=== PATIENT | female | born 1970 | race Caucasian/White ===

== ENCOUNTER → 2020-01-28 | Outpatient (CLI) | payer OTHER | LOC: SJCVCIMAG 07:50 | PROVIDERS: ATTEND Internal Medicine Cardiovascular Disease | DX: R55 Syncope and collapse (principal); R42 Dizziness and giddiness ==

== ENCOUNTER → 2020-02-05 | Outpatient (CLI) | payer OTHER ==
[2020-02-05 12:47] VITALS: BP 123/89
--- NOTE | 2020-02-10 17:12 | LINQ ---
[facility] [place] [address] LINQ PROCEDURE REPORT Name: ABDOULAYE MELENDEZ Room #: REG JOE Parrish#: [id number] Admission: 02/05/20 Attend Phys: Vicente Jackson Discharge: Date of : 70 Report #: [id number] THIS REPORT FOR: cc: Christina Pineda MD, Constance M. MD Lammoglia, Francisco J. MD ~ THIS REPORT FOR: //name// APPROVED REPORT Study performed: 02/05/2020 14:30:11 Patient Status: Out-Patient Room #: Event Personnel: Vicente Jackson MD Exam: Reveal LINQ Insertion Indications: Syncope Implanted Devices: Medtronic: Reveal LINQ; Model #: LNQ11; SN: [id number]; Use by: 2020-05-23 Procedure The patient underwent informed consent. We discussed the details of the procedure including the risks, which include, but not limited to bleeding, infection, vascular damage, cardiac perforation, and pneumothorax. Abdominal exam was obtained the patient was brought to the cardiac aspiration laboratory prepped and hold. The left chest was prepped and draped in usual sterile manner. Using 1% lidocaine the wheal was raised and incision and tract was anesthetized. Using 11 blade and a small incision was made. Utilizing both blunt and sharp dissection a pocket was generated. With the enclosed deployment tool this was utilized and the device was positioned in place and secured. Subcutaneous tissue was closed with 2 simple interrupted sutures and the skin was closed with a 3-0 Vicryl absorbable running subcuticular. Steri-Strips 4 x 4 OpSite were utilized. Patient tolerated procedure well and there were no complications Conclusion 1. Successful implantation of a loop recorder [place] [address] [place] [address] [employer] PROCEDURE REPORT Name: ABDOULAYE MELENDEZ Room #: REG [facility]#: [id number] Admission: 02/05/20 Attend Phys: Vicente Rodríguez Discharge: Date of : 70 Report #: [id number] Recommendations 1. Routine post insertion protocol <ELECTRONICALLY SIGNED> By: Vicente Jackson MD 02/10/201711 11 11 Vicente Jackson MD /INF
== END | disposition home or self-care (01) ==
LOC: CATH 10:26
PROVIDERS: ATTEND Internal Medicine
DX: R55 Syncope and collapse (principal)

== ENCOUNTER → 2020-03-23 | Outpatient (CLI) | payer OTHER | LOC: LAB 11:28 | PROVIDERS: ATTEND Internal Medicine Cardiovascular Disease | DX: Z01.812 Encounter for preprocedural laboratory examination (principal); Z20.828 Contact with and (suspected) exposure to other viral communicable diseases ==

== ENCOUNTER → 2020-03-28 | Outpatient (CLI) | payer OTHER ==
[~2020-03-28] MED LIST: ALPRAZOLAM 0.0.25 M1 PO; AMITRIPTYLINE H10 M1 PO; D3-200050 MCG PO; L-METHYL-MC TA1 EACH PO; LOESTRIN FE 1-1 EACH PO; LUNESTA3 MG PO; NP THYROID60 MG PO; TRAZODONE HCL50 MG PO
[2020-03-28 07:13] VITALS: BP 104/62
[2020-03-28 07:46] LABS: ABSOLUTE NEUTROPHILS 3.1 thou/uL (1.4-8.2); EOSINOPHILS 2.1 % (0.0-3.0); HEMATOCRIT 41.4 % (37.0-47.0); HEMOGLOBIN 13.4 gm/dL (12.0-15.0); LYMPHOCYTES 28.6 % (24.0-44.0); MCHC 32.4 g/dL (28.0-37.0); MCV 89.4 fL (80.0-100.0); MONOCYTES 11.6 % (1.0-8.0); PLATELET COUNT 207 thou/uL (150-400); POLYS 56.7 % (36.0-66.0); RBC 4.63 mil/uL (4.20-5.00); RDW 13.2 % (10.5-14.5); WBC 5.5 thou/uL (4.0-11.0)
[2020-03-28 08:12] LABS: CALCIUM 8.5 mg/dL (8.5-10.1); CREATININE 1.1 mg/dL (0.6-1.0)
[2020-03-28 08:19] LABS: APTT 29.2 Seconds (24.5-32.8); PROTIME 10.4 Seconds (9.3-11.4)
[2020-03-28 08:20] LABS: ALBUMIN 3.6 g/dL (3.4-5.0); TOTAL BILIRUBIN 0.2 mg/dL (0.2-1.0); TOTAL PROTEIN 7.3 g/dL (6.4-8.2)
--- NOTE | 2020-04-04 11:51 | P ---
[facility] [place] [address] PROCEDURE REPORT Name: ABDOULAYE MELENDEZ Room #: REG JOE FlanneryLizetteAdelaLizette#: [id number] Admission: 03/28/20 Attend Phys: Ruben Mcpherson MD Discharge: Date of : 70 Report #: [id number] THIS REPORT FOR: cc: Christina Pineda MD,Christina Mcpherson,Ruben Krishnan MD ~ CC: Christina Mcpherson EP STUDY PREOPERATIVE DIAGNOSIS: Supraventricular tachycardia. POSTOPERATIVE DIAGNOSIS: Supraventricular tachycardia. PROCEDURES PERFORMED: 1. Comprehensive EP study with induction, CPT code 06282. 2. EP with left atrial pacing and recording, 54985. 3. Program stimulation and pacing after IV drug infusion, CPT code 57787. HISTORY: The patient is a 49-year-old female with history of recurrent syncope, status post implantable loop recorder who had evidence of SVT on a patient monitor. She is here for EP study and ablation. DESCRIPTION OF PROCEDURE: The patient was brought to EP laboratory in a fasting and sedated state, prepped and draped in a sterile fashion. I obtained access to the femoral veins placing an 8, 2, 6 and a 7-Ivorian short sheath using the modified Seldinger technique. Next, under fluoroscopy, I placed 3 quadripolar catheters at the HRA, His and RV positions and decapolar catheter into the coronary sinus. Next a comprehensive EP study was performed. At baseline, the patient was in sinus rhythm with sinus cycle length of 840 milliseconds, WA interval 135 milliseconds, QRS duration 95 milliseconds, QT interval 375 milliseconds, AH interval 110 milliseconds, HV interval 36 milliseconds. Atrial burst pacing was performed and AV block was noted at 400 milliseconds. Ventricular pacing was performed and VA block was noted at 500 milliseconds. Conduction was both midline and decremental. Single atrial and ventricular extrastimuli were delivered and no SVT was induced. Next, isoproterenol infusion was started at 2 mcg per minute and AV block was noted 270 milliseconds. Atrial ERP was noted at 210 milliseconds at a [address] cycle length. VA block was noted at 270 milliseconds. Ventricular ERP was noted at 190 milliseconds at [address] cycle length with VA conduction that was both midline and decremental. I tested at this dose for 20-30 minutes and no SVT could be induced. Isoproterenol was increased to 4 mcg per minute. Atrial ERP was noted at 200 milliseconds at [address] cycle length. AV block was noted at 230 milliseconds and VA block was noted at 250 milliseconds. Again, we performed very aggressive EP study and could not induce any SVT. There was no evidence of a slow pathway with no jumps [facility] [address] [place] [address] PROCEDURE REPORT Name: ALABDOULAYE Room #: REG JOE Senior#: [id number] Admission: 03/28/20 Attend Phys: Ruben Mcpherson MD Discharge: Date of : 70 Report #: [id number] and no echoes, there was no evidence of accessory pathway. Even with aggressive atrial pacing, I could not induce AFib or atrial flutter. As such, we continued testing as the isoproterenol wore off. Post-ablation, the patient remained in sinus rhythm with normal intervals. As such, all catheters and sheaths were pulled. Hemostasis was obtained and the patient awoke neurologically and hemodynamically intact with no complications and no significant bleeding. CONCLUSIONS: 1. Normal comprehensive EP study with no inducible arrhythmias. 2. Normal SA sylvia function. 3. Normal AV sylvia function. 4. Normal His-Purkinje function. <ELECTRONICALLY SIGNED> By: Ruben Mcpherson MD 04/04/20 1151 1233 20 Ruben Mcpherson MD /nt
== END | disposition home or self-care (01) ==
LOC: CATH 06:34
PROVIDERS: ATTEND Internal Medicine Cardiovascular Disease
DX: I47.1 Supraventricular tachycardia (principal); R55 Syncope and collapse; E03.9 Hypothyroidism, unspecified; G47.00 Insomnia, unspecified; F32.9 Major depressive disorder, single episode, unspecified; Z98.890 Other specified postprocedural states; Z79.899 Other long term (current) drug therapy; Z88.2 Allergy status to sulfonamides; Z88.8 Allergy status to other drugs, medicaments and biological substances
CPT/HCPCS: 62110; 62900; 70005

== ENCOUNTER → 2020-05-09 | Outpatient (CLI) | payer OTHER | LOC: LAB 10:46 | PROVIDERS: ATTEND Internal Medicine | DX: Z01.812 Encounter for preprocedural laboratory examination (principal); Z20.828 Contact with and (suspected) exposure to other viral communicable diseases ==

== ENCOUNTER 2020-05-13 09:27 | Observation (INO) | payer OTHER ==
[~2020-05-13] VITALS: Ht 167.6 cm; Wt 74.9 kg
[2020-05-13 10:10] VITALS: BP 112/68
[2020-05-13] MEDS ORDERED: TRAMADOL 50 MG50 MG PO (10:32)
[2020-05-13] MEDS ORDERED: TRANSDERM-SCOP1 EACH TRANSDERM (10:35)
[2020-05-13] MEDS ORDERED: ONDANSETRON ODT8 MG PO (10:35)
[2020-05-13] MEDS ORDERED: ONDANSETRON ODT4 MG PO (10:36)
[2020-05-13] MEDS ORDERED: NAPROSYN500 M1 PO (10:37)
[2020-05-13] MEDS ORDERED: MECLIZINE HCL25 M1 PO (10:38)
[2020-05-13] MEDS ORDERED: NORCO 10-325 T1 EACH PO (10:39)
[2020-05-13 10:45] LABS: HEMATOCRIT 40.8 % (37.0-47.0); HEMOGLOBIN 13.8 gm/dL (12.0-15.0); MCH 29.9 pg (26.0-34.0); MCHC 33.8 g/dL (28.0-37.0); MCV 88.6 fL (80.0-100.0); RBC 4.61 mil/uL (4.20-5.00); RDW 12.9 % (10.5-14.5); WBC 5.6 thou/uL (4.0-11.0)
[2020-05-13 10:52] LABS: CALCIUM 9.3 mg/dL (8.5-10.1); CREATININE 1.1 mg/dL (0.6-1.0); POTASSIUM 4.1 mmol/L (3.5-5.1)
[2020-05-13 11:05] VITALS: BP 146/96
[2020-05-13 15:00] VITALS: BP 110/78
--- NOTE | 2020-05-13 16:30 | NUR ---
NEW ADMIT POST PACEMAKER PLACED BY DR OROPEZA, LEFT SHOULDER IMMOBILIZER IN PLACE WITH DRESSING OVER INCISION SIGHT. PAIN MANAGED WITH PRN MEDICATION. BEDSIDE AT THIS TIME. PT ALERTX4 DROWSY. HOB AT 45DEGREE. ORRIENTED TO ROOM. FLUIDS GIVEN IN POST OP. AMDISSION ASSESEMENT, EDUCATION, HISTORY COMPLETED. FALL PRECATION IN PLACE. CALL LIGHT IN REACH.
[2020-05-13 19:00] VITALS: BP 104/63
[2020-05-13 23:50] VITALS: BP 125/60
--- NOTE | 2020-05-14 04:43 | NUR ---
ASSESSMENTS CHARTED, MEDS CHARTED GIVEN. PATIENT RESTING WITH IMMOBILIZER IN PLACE DURING SHIFT. PATIENT RECEIVED NEW PACEMAKER DURING DAY, SURGICAL SITE IS DRY AND INTACT. PATIENT NPO SINCE MIDNIGHT IN CASE XRAY SHOWS LEADS ARE NOT IN THE CORRECT SPOT. C/O PAIN AT SITE AT START OF SHIFT, HAD JUST RECEIVED PAIN MEDS, PATIENT ASLEEP. PATIENT'S HOME MEDS WERE RESTARTED. BASED ON XRAY, PATIENT MAY BE DISCHARGED IN THE MORNING. FALL PRECAUTIONS IN PLACE DURING SHIFT.
[2020-05-14 04:50] VITALS: BP 107/59
[2020-05-14 07:15] VITALS: BP 118/78
[2020-05-14 11:15] VITALS: BP 108/69
[2020-05-14 11:33] VITALS: BP 118/78
--- NOTE | 2020-05-14 13:21 | NUR ---
PT HAD A HEAD ACHE WHICH WAS MOSTLY RELEIVED WITH TYLENOL. DR WORKMAN SAW HER XRAY AND WROTE DC ORDERS. ALL ORDERS REVIEWED WITH PT, SHE VERBALIZED UNDERSTANDING OF UPCOMING APPOINTMENTS AND MEDICATIONS, IV AND TELE MONITOR BOTH REMOVED, PT'S , BRITTANIE, CAME IN TO HELP PT DRESS, PT LEFT WITH HIM VIA BEING PUSHED OUT BY WHEELCHAIR, AND TOOK ALL BELONGINGS.
--- NOTE | 2020-05-15 20:45 | CATHLAB ---
[facility] [address] [place] [address] INVASIVE PROCEDURE REPORT Name: ABDOULAYE MELENDEZ Room #: 201-P [facility] Elham Senior#: [id number] Admission: 05/13/20 Attend Phys: Vicente Jackson Discharge: 05/14/20 Date of : 70 Report #: [id number] THIS REPORT FOR: cc: Christina Pineda MD, Constance M. MD Lammoglia, Francisco J. MD ~ APPROVED REPORT Study performed: 05/13/2020 10:27:27 Patient Status: Out-Patient Room #: Event Personnel: Dr. Sam Jackson Exam: Insertion of Dual Chamber Permanent Pacemaker Indications: Sick Sinus Syndrome/Tachy You Syndrome The patient is a 49 year-old female with a history of Symptomatic tachybradycardia syndrome. Implanted Devices: MEDTR[employer]IC RV-MODEL:5076-58CM, SN:[id number], EXPIRATION: 2021-12-21 RA- MODEL:5076-45CM, SN:[id number], EXPIRATION: 2021-09-15 JANELLE TOLEDO- [id number], SN: [id number], EXPIRATION: 2021-08-21 Procedure The patient underwent informed consent. We discussed the details of the procedure including the risks, which include, but not limited to bleeding, infection, vascular damage, cardiac perforation, and pneumothorax. She understood these risks and was willing to proceed. As such, she was brought to the EP/Cardiac Catheterization laboratory in a fasting and sedated state and prepped and draped in a sterile fashion, received IV antibiotics prior to initiation of the procedure and a venogram was performed showing patency of the left axillary vein. The patient underwent general anesthesia, with no anesthesia related complications. The patient was brought to the EP/Cardiac Catheterization laboratory and the left chest and shoulder were prepped and draped in a sterile manner. During this case, Fluoroscopy and no contrast were used for imaging. The left subclavian region was infiltrated with 2% Lidocaine subcutaneous anesthesia. A transverse incision was made in the left upper chest cavity. [address] [address] INVASIVE PROCEDURE REPORT Name: ABDOULAYE MELENDEZ Room #: 201-P [facility] IN .R.#: [id number] Admission: 05/13/20 Attend Phys: Vicente Rodríguez Discharge: 05/14/20 Date of : 70 Report #: [id number] The subcutaneous pocket was formed via blunt dissection. Percutaneous venous access was achieved and an introducer sheath was inserted into the left Subclavian vein. Sheaths were positions using the modified Seldinger technique Through the introducer sheaths the atrial and ventricular lead wires were positioned in the right atrial appendage and right ventricular apex respectively. Capturing and sensing thresholds were verified. Electrode Parameters P Wave: 1.5 mV R Wave: 7.1 mV Atrial Threshold: 1.0 V @ 0.4 ms Ventricular Threshold: 1.0 V @ 1.0 ms Atrial Resistance: 527 Ohms Ventricular Resistance: 1037 Ohms Dual Chamber The atrial and ventricular leads were then secured using 0 Nurolon sutures. The subcutaneous pocket was irrigated with ancef antibiotic solution.The atrial and ventricular leads were attached to the appropriate receptacles on the pulse generator and set screws firmly tightened to insure adequate contact and stability. The lead and pulse generator were placed into the subcutaneous pocket. Sharp and sponge counts were confirmed to be correct. At this time the pocket was closed subcutaneously with a 0 Nurolon and the skin was closed with a 3.0 Vicryl. The operative site was dressed in sterile fashion with steri strips and the patient was transferred to the floor in stable condition. Complications The patient tolerated the procedure well and there were no complications associated with the procedure. Conclusion 1. Successful implantation of a dual-chamber pacemaker Recommendations 1. Routine post insertion protocol <ELECTRONICALLY SIGNED> By: Vicente Jackson MD 05/15/202044 44 44 Vicente Jackson MD /INF
== END 2020-05-14 13:25 | disposition home or self-care (01) ==
LOC: CATH 09:27 → 2N 15:10
PROVIDERS: ADMIT Internal Medicine; ATTEND Internal Medicine
DX: R55 Syncope and collapse (principal); R00.0 Tachycardia, unspecified; I47.1 Supraventricular tachycardia; F41.9 Anxiety disorder, unspecified; F32.9 Major depressive disorder, single episode, unspecified; E03.9 Hypothyroidism, unspecified; G47.00 Insomnia, unspecified; Z79.899 Other long term (current) drug therapy
CPT/HCPCS: 62110; 62900; 70005